=== PATIENT | male | born 1990 | race Hispanic/Latino ===

== ENCOUNTER 2023-11-21 20:07 | Emergency (ER) | payer OTHER, SELFPAY ==
[2023-11-21 20:10] VITALS: BP 126/79; PULSE 62; RESP 16; TEMP 36.4; O2SAT 98; BMI 30.1
--- NOTE | 2023-11-21 20:31 | EKG12_ITS ---
Test Reason : DYSRHYTHMIA Blood Pressure : / mmHG Vent. Rate : 057 BPM Atrial Rate : 057 BPM P-R Int : 150 ms QRS Dur : 108 ms QT Int : 416 ms P-R-T Axes : 008 019 021 degrees QTc Int : 404 ms Sinus bradycardia Otherwise normal ECG Confirmed by AIDEN MORELAND, SOLANGE ([id number]), video effects editor BLADIMIR BECKHAM ([id number]) on 11/22/2023 8:21:38 AM Referred By: Confirmed By:SOLANGE WOLFE MD
--- NOTE | 2023-11-21 20:32 | EDS_ITS ---
HPI History of Present Illness Chief Complaint: General Illness Informant: patient Narrative Narrative: Austrian-speaking formal copyright clerk service used. Presents with 1 week history nontraumatic right flank pain lower bilateral leg pain. Intermittent weakness a nd dizziness. No chest pains. No dyspnea. Denies nausea vomiting or diarrhea. Occasional urine frequency no dysuria. No hematuria. 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 He states sometimes does not drink enough water. Denies fever or chills. May have had similar symptoms 3 months ago however cannot recall how long it lasts that he was not evaluated anywhere for this. Denies any past medical history any major surgeries or any allergies to any medications. PFSH PFSH Medical History no medical history Allergy/AdvReac Type Severity Reaction Status Date / Time No Known Allergies Allergy Verified 11/21/23 20:09 Social History Smoking Status: Never smoker ROS ROS ED Constitutional Constitutional ED: Denies chills, fever(s) or sweats Eyes Eyes: Denies change in vision ENT ENT ED: Denies dysphagia or sore throat Cardiovascular Cardiovascular: Denies chest pain, leg edema, palpitations or racing heartbeat Respiratory/Chest Respiratory/Chest: Denies cough, dyspnea or dyspnea on exertion Gastrointestinal Gastrointestinal: Denies abdominal pain, diarrhea, nausea or vomiting Genitourinary Genitourinary ED: Denies dysuria, hematuria or urinary frequency Musculoskeletal Musculoskeletal: Reports back pain; Denies extremity pain or neck pain Integumentary Denies rash or wounds Neurologic Neurologic: Reports weakness; Denies headache(s) or paresthesias EXAM Physical Exam Const Vital Signs: 11/21/23 20:10 11/21/23 20:24 11/21/23 21:51 Temperature 97.5 F L 98.4 F Temperature Source Temporal Pulse Rate 62 56 L Respiratory Rate 16 17 Respiratory Effort Normal Non-Labored Respiratory Pattern Normal Blood Pressure 126/79 H 118/76 Blood Pressure Mean 94 90 Pulse Ox 98 97 Oxygen Delivery Method Room Air Positive well nourished and well developed General Appearance ED: well developed and NAD HEENT Reports moist mucous membranes normocephalic and atraumatic Eyes EOMs intact bilaterally and conjunctivae normal General Eye ED: Yes normal appearance of both eyes Neck no lymphadenopathy and supple General: Negative for tenderness Chest Wall Chest: Negative for tenderness Resp normal respiratory effort and normal air movement Effort and Inspection: symmetric chest movement; Negative for respiratory distress Cardio regular rate, regular rhythm and no murmurs Peripheral Pulses: pulses 2+ throughout GI normal to inspection, nondistended, normoactive bowel sounds and non-tender GI Narrative: Negative Arrieta's or McBurney's tenderness. Palpation: Negative for guarding or rebound tenderness present Back/Spine no CVA tenderness and no thoracic nor lumbar tenderness Extremity normal to inspection Extremity Narrative: Soft compartments of the lower extremities thigh and lower legs. Pulses are intact distally. General Extremety ED: Negative for edema or tenderness General Extremity: Negative for edema Neuro oriented x3 and no sensory deficits noted Sensorium / Orientation: awake and alert Skin no rashes or lesions noted and no wounds MDM MDM MDM Narrative Medical decision making narrative: Interventions / MDM: Differential diagnosis: Myalgias, dehydration Diagnosis considered but do not suspect: No clinical presentation for kidney stones. My EKG interpretation: Sinus rate of 57, no ST changes isolated T wave version lead III. Nonspecific. QTc 404. Imaging independently reviewed and interpreted by myself: N/A External documents reviewed: N/A Test considered but not ordered:N/A ED course: Vital stable nontoxic. Work long hours 7 consecutive days with 1 day off. Currently warmer weather's, decrease fluid intake. No clear clinical dehy dration. Will check the labs urine including CPK level. IV fluids will be ordered. EKG ordered with his reported near syncopal symptoms and weakness. 2114: EKG labs all stable potassium 3.4 CK level was 34. Creatinine 0.88. Awaiting urine. 2149: Urine negative for any acute process. I used the interpretation service again reevaluate the patient, clinically was feeling better after IV fluids. Labs did not show any dehydration however clinically concerns of this due to his line of work. I discussed continue oral fluids for hydration at home especially when at work. He is given follow-up as an outpatient. All questions were answered. Re-evaluation: stable Disposition discussed with patient/family/significant other: Case discussed with consulting clinician: N/A This note was generated with [employer] dictation software. It may contain incorrect words, spelling, and punctuation that were not noted in checking the note before signing. Lab Data Attestation: I reviewed the patient's lab results. Labs: Laboratory Results - last 24 hr 11/21/23 11/21/23 20:37 21:12 WBC 8.7 RBC 5.31 Hgb 15.2 Hct 45.7 MCV 86.1 MCH 28.6 MCHC 33.3 RDW Std Deviation 38.9 RDW Coeff of Martin 12.4 Plt Count 282 MPV 10.8 Immature Gran % (Auto) 0.500 Neut % (Auto) 52.9 Lymph % (Auto) 36.5 [place] % (Auto) 6.1 Eos % (Auto) 3.4 Baso % (Auto) 0.6 Absolute Neuts (auto) 4.6 Absolute Lymphs (auto) 3.18 Nucleated RBC % 0 Sodium 138 Potassium 3.4 L Chloride 105 Carbon Dioxide 28.0 Anion Gap 5 BUN 14 Creatinine 0.88 Estim Creat Clear Calc 106.41 Est GFR (MDRD) Af Amer 127 Est GFR (MDRD) Non-Af 105 BUN/Creatinine Ratio 15.9 Glucose 102 Calcium 9.0 Total Creatine Kinase 34 L Urine Color Yellow Urine Clarity Clear Urine pH 7.0 Ur Specific Walker 1.005 Urine Protein Negative Urine Glucose (UA) Normal Urine Ketones Negative Urine Occult Blood Negative Urine Nitrite Negative Urine Bilirubin Negative Urine Urobilinogen Normal Ur Leukocyte Esterase Negative Urine RBC 0 SEEN Urine WBC 0 SEEN Ur Squamous Epith Cells 0 SEEN Urine Bacteria 0 SEEN Urine Mucus 0 SEEN Discharge Plan Triage Chief Complaint: General Illness ED Provider: Omi Munroe Dx/Rx/DC Orders Clinical Impression: Myalgia, Near syncope Instructions: ED Myalgias Primary Care Provider: Care Physician,No Primary Referrals: Wanda Tripp [Non-Staff] - 1 Week NOT,DEFINED [Non-Staff] - Activity Restrictions/Additional Instructions: EKG normal labs including CPK normal. Continue oral fluids for hydration. Print Language: Vincentian Disposition Disposition: Home, Self Care
[2023-11-21] MEDS: 0.9% Normal Saline (1000mL) 1,000 ML 1000 ML IV (20:35)
[2023-11-21 20:48] LABS: Absolute Lymphocyte Count 3.18 X10^3/uL (0.83-4.51); Absolute Neutrophil Count 4.6 X10^3/uL (2.0-7.7); Basophil# 0.05 X10^3/uL; Basophil% 0.6 % (0-1); Eosinophils% 3.4 % (0-5); Hematocrit 45.7 % (40-54); Hemoglobin 15.2 g/dL (13.0-16.5); Lymphocyte # 3.18 X10^3/ul (0.83-4.51); Lymphocyte % 36.5 % (19-41); Mean Corp Hgb Conc 33.3 g/dL (32-36); Mean Corpuscular Hgb 28.6 pg (27.0-32.0); Mean Corpuscular Volume 86.1 fL (80-94); Mean Platelet Vol. 10.8 fl (6.2-12.0); Monocyte# 0.53 X10^3/uL; Monocyte% 6.1 % (0-10); NRBC Flagged by Analyzer 0 % (0-5); Neutrophil # 4.62 X10^3/uL (2.7-7.7); Neutrophil % 52.9 % (47-70); Platelet Count 282 K/mm3 (150-450); RBC Distribution Width CV 12.4 % (11.6-14.6); RBC Distribution Width SD 38.9 fl (35.1-43.9); Red Blood Count 5.31 M/mm3 (4.6-6.2); White Blood Count 8.7 K/mm3 (4.4-11.0)
[2023-11-21 21:08] LABS: Anion Gap 5 (5-15); BUN 14 mg/dL (7-18); BUN/Creat Ratio 15.9 RATIO (10-20); CPK Total, Creatine Kinase 34 U/L (39-308); Chloride 105 mmol/L (98-107); Creatinine, Serum 0.88 mg/dL (0.70-1.30); EST Glomerular Filtration Rate 105 mL/min (>60); Est Glom Filt Rate - Afr Amer 127 mL/min (>60); Estimated Creatinine Clearance 106.41 ml/min; Glucose 102 mg/dL (74-106); Potassium 3.4 mmol/L (3.5-5.1); Sodium Level 138 mmol/L (136-145)
[2023-11-21 21:19] LABS: Bacteria 0 SEEN /hpf (None Seen); Mucous, Urine 0 SEEN /hpf (<or=2+); Red Blood Cells-Urine 0 SEEN /hpf (0-5); Squamous Epithelial Cells - UA 0 SEEN /hpf (0-5); White Blood Cells 0 SEEN /hpf (0-5)
[2023-11-21 21:21] LABS: Color, Urine Yellow (Yellow); Glucose, Dipstick Normal (Normal); Ketone-Dipstick Negative (Negative); Leukocyte Esterase-Dipstick Negative /ul (Negative); Nitrite-Dipstick Negative (Negative); Occult Blood-Urine Negative /ul (Negative); Protein-Dipstick Negative (Negative); Specific Gravity, Urine 1.005 (1.002-1.030); Urine Bilirubin Dipstick Negative (Negative); Urine Clarity Clear (Clear); Urine Urobilinogen Normal (Normal)
[2023-11-21 21:51] VITALS: BP 118/76; PULSE 56; RESP 17; TEMP 36.9; O2SAT 97
== END 2023-11-21 22:04 | disposition home or self-care (01) ==
PROVIDERS: Emergency Provider Emergency Medicine; Visit Provider Emergency Medicine
DX: M79.10 Myalgia, unspecified site (principal); R55 Syncope and collapse; M79.605 Pain in left leg; M79.604 Pain in right leg; R10.9 Unspecified abdominal pain
CPT/HCPCS: 80048; 81001; 82550; 85025; 93005; 96360; 99284; A4216